=== PATIENT | female | born 1950 | race Caucasian/White ===

== ENCOUNTER 2023-04-29 12:37 | Emergency (ER) | payer MEDICARE, MEDICAID ==
[~2023-04-29] VITALS: Ht 154.9 cm
[2023-04-29 12:45] VITALS: BP 158/75
[2023-04-29 13:38] LABS: BASO # 0.1 10*3/uL (0.0-0.1); BASO % 0.7 % (0.0-1.0); EOS # 0.2 10*3/uL (0.0-0.4); EOS % 2.1 % (1.0-4.0); HEMATOCRIT 44.2 % (37.0-47.0); LYMPH # 1.2 10*3/uL (1.3-4.4); LYMPH % 16.5 % (27.0-41.0); MEAN CELL VOLUME 90.8 fl (81.0-99.0); MEAN CORPUSCULAR HGB 29.8 pg (27.0-31.0); MEAN CORPUSCULAR HGB CONC 32.8 g/dl (33.0-37.0); MEAN PLATELET VOLUME 8.6 fl (9.6-12.3); MONO # 0.8 10*3/uL (0.1-1.0); MONO % 10.6 % (3.0-9.0); PLATELET COUNT AUTOMATED 311 10*3/uL (130-400); RED BLOOD COUNT 4.87 10*6/uL (4.10-5.10); RED CELL DISTRI WIDTH 14.4 % (0-14.5); WHITE BLOOD COUNT 7.2 10*3/uL (4.8-10.8)
[2023-04-29 13:59] LABS: ALKALINE PHOSPHATASE 86 U/L (46-116); BUN 11 mg/dl (9-23); CHLORIDE 105 mmol/L (98-107); CPK 163 U/L (34-171); ETHYL ALCOHOL 3.5 mg/dl (<3); POTASSIUM 4.2 mmol/L (3.4-5.1); SGPT/ALT 19 U/L (10-49)
[2023-04-29 14:10] LABS: BILIRUBIN Negative (Negative); BLOOD Negative (Negative); CLARITY Clear (Clear); COLOR Yellow (Yellow); GLUCOSE Negative (Negative); KETONE Negative (Negative); LEUKO ESTERASE Negative (Negative); NITRITE Negative (Negative); SPECIFIC GRAVITY 1.015 (1.001-1.030)
[2023-04-29 14:17] LABS: URINE AMPHETAMINES Negative (1000ng/ml); URINE BARBITURATES Negative (200ng/ml); URINE BENZODIAZEPINES Negative (200ng/ml); URINE CANNABINOIDS (THC) Negative (50ng/ml); URINE COCAINE Negative (300ng/ml); URINE METHADONE Negative (300ng/ml); URINE OPIATES Negative (300ng/ml); URINE PHENCYCLIDINE Negative (25ng/ml)
[2023-04-29 14:20] LABS: RBC 0-2 rbc/hpf (0-2)
[2023-04-29] MEDS ORDERED: AMLODIPINE BES2.5 MG PO (14:26)
[2023-04-29] MEDS ORDERED: ASPIRIN ADULT L81 M2 PO (14:27)
[2023-04-29] MEDS ORDERED: BUPROPION HYDR150 M1 PO (14:27)
[2023-04-29] MEDS ORDERED: ARIPIPRAZOLE15 MG PO (14:27)
[2023-04-29] MEDS ORDERED: DOCUSATE SOD100 MG PO (14:28)
[2023-04-29] MEDS ORDERED: FIBERLAX625 MG PO (14:28)
[2023-04-29] MEDS ORDERED: ARNUITY ELLIPT50 MCG INH (14:29)
[2023-04-29] MEDS ORDERED: GEMTESA75 MG PO (14:29)
[2023-04-29] MEDS ORDERED: VITAMIN C500 M4 PO (14:30)
[2023-04-29] MEDS ORDERED: VITAMIN E90 M1 PO (14:31)
[2023-04-29] MEDS ORDERED: HYDROCHLOROTHIA25 M1 PO (14:31)
[2023-04-29] MEDS ORDERED: VITAMIN D350 MC2 PO (14:31)
[2023-04-29] MEDS ORDERED: HYDROXYZINE PAM50 MG PO (14:32)
[2023-04-29] MEDS ORDERED: LISINOPRIL20 MG PO (14:33)
[2023-04-29] MEDS ORDERED: LEVOTHYROXINE50 MCG PO (14:33)
[2023-04-29] MEDS ORDERED: OXYBUTYNIN5 MG PO (14:34)
[2023-04-29] MEDS ORDERED: GOOD NEIGHBOR L10 MG PO (14:34)
[2023-04-29] MEDS ORDERED: MELOXICAM15 MG PO (14:34)
[2023-04-29] MEDS ORDERED: RIVASTIGMINE TAR6 M1 PO (14:35)
[2023-04-29] MEDS ORDERED: SEROQUEL XR300 MG PO (14:35)
[2023-04-29] MEDS ORDERED: MINERAL OIL 1 ML1 ML PO (14:38)
[2023-04-29] MEDS ORDERED: LATU40TA PO (14:39)
[2023-04-29] MEDS ORDERED: REMERON15 M2 PO (14:39)
[2023-04-29] MEDS ORDERED: TYLENOL325 M1 PO (15:51)
[2023-04-29] MEDS ORDERED: BENZONATATE200 MG PO (15:52)
== END 2023-04-29 15:02 ==
LOC: ED 12:37 → 3N 15:31 → ED 15:31
PROVIDERS: Physician Assistant Medical
DX: F20.9 Schizophrenia, unspecified (principal); Z20.822 Contact with and (suspected) exposure to COVID-19; Z79.899 Other long term (current) drug therapy